=== PATIENT | male | born 1980 | race Caucasian/White ===

== ENCOUNTER 2019-11-12 01:10 | Emergency (ER) | payer BC ==
[~2019-11-12] VITALS: Ht 154.9 cm; Wt 70.0 kg
[2019-11-12 01:20] VITALS: Ht 154.9 cm; Wt 70.0 kg
[2019-11-12 02:27] LABS: BASOPHIL % 1.7 % (0-2); CALCIUM 9.1 mg/dL (8.5-10.1); CHLORIDE SERUM 101 mmol/L (98-107); CREATININE SERUM 0.8 mg/dL (0.7-1.3); GFR1 > 60 mL/min; GLUCOSE SERUM 102 mg/dL (74-106); PLATELET COUNT 183 x10^3mcL (130-400); POTASSIUM SERUM 3.8 mmol/L (3.5-5.1); RED CELL DISTRIBUTION WIDTH 13.3 % (11.5-14.5); SODIUM SERUM 139 mmol/L (136-145)
[2019-11-12 02:33] LABS: ALBUMIN 4.7 g/dL (3.4-5.0); ALKALINE PHOSPHATASE 86 U/L (46-116); ALT/SGPT 27 U/L (16-63); AST/SGOT 10 U/L (15-37); BILIRUBIN TOTAL 0.4 mg/dL (0.20-1.00); TOTAL PROTEIN, SERUM 7.5 g/dL (6.4-8.2)
[2019-11-12 04:33] VITALS: BP 114/67
== END 2019-11-12 04:34 | disposition home or self-care (01) ==
LOC: ED 01:10
PROVIDERS: Emergency Medicine
DX: R07.89 Other chest pain (principal); E78.00 Pure hypercholesterolemia, unspecified
CPT/HCPCS: Q0092